=== PATIENT | female | born 2000 | race Hispanic/Latino ===

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

== ENCOUNTER 2023-11-21 15:57 | Emergency (ER) | payer SELFPAY | END 2023-11-21 18:20 | disposition home or self-care (01) | LOC: ERS 15:57 | DX: M25.571 Pain in right ankle and joints of right foot (principal); W10.9XXA Fall (on) (from) unspecified stairs and steps, initial encounter; Z75.3 Unavailability and inaccessibility of health-care facilities | CPT/HCPCS: 99283 ==